=== PATIENT | male | born 2000 | race Native Hawaiian/Other Pacific Islander ===

== ENCOUNTER 2023-02-16 19:35 | Inpatient (IN) | payer MEDICAID ==
[~2023-02-16] VITALS: Ht 165.1 cm; Wt 62.3 kg
[2023-02-16] MEDS ORDERED: ZOLPIDEM TARTRATE 10 MG TABLET PO PRN (22:30)
[2023-02-17 01:38] VITALS: BP 122/88; PULSE 100; RESP 18; TEMP 97.3; O2SAT 99
[2023-02-17 02:30] VITALS: TEMP 97.3
[2023-02-17] MEDS ORDERED: INFLUENZA VIRUS VACCINE QVS 2023-24 (6MO+)/PF 60 MCG/0.5 ML SYRINGE IM. ONE (02:45)
[2023-02-17] MEDS ORDERED: MAGNESIUM HYDROXIDE SUSPENSION 30 ML UDCUP PO PRN (07:15)
[2023-02-17] MEDS ORDERED: PETROLATUM,WHITE 28 GM JELLY TP PRN (07:15)
[2023-02-17] MEDS ORDERED: DOCUSATE SODIUM 100 MG CAPSULE PO PRN (07:15)
[2023-02-17] MEDS ORDERED: CloNIDine HCL 0.1 MG TABLET PO PRN (07:15)
[2023-02-17] MEDS ORDERED: LOPERAMIDE HCL 2 MG CAPSULE PO PRN (07:15)
[2023-02-17] MEDS ORDERED: IBUPROFEN 400 MG TABLET PO PRN (07:15)
[2023-02-17] MEDS ORDERED: ACETAMINOPHEN 325 MG TABLET PO PRN (07:15)
[2023-02-17] MEDS ORDERED: GuaiFENesin/D-METHORPHAN [SUGAR-FREE] 200-20MG/10 ML SYRUP UDCUP PO PRN (07:15)
[2023-02-17] MEDS ORDERED: NICOTINE 14 MG/24 HOUR PATCH TD PRN (07:15)
[2023-02-17] MEDS ORDERED: ONDANSETRON HCL 4 MG TABLET PO PRN (07:15)
[2023-02-17] MEDS ORDERED: MAG HYDROX/ALUMINUM HYD/SIMETH ES 30 ML SUSPENSION UDCUP PO PRN (07:15)
[2023-02-17] MEDS ORDERED: ALBUTEROL SULFATE HFA 90 MCG/PUFF 8 GM INHALER IH PRN (07:15)
[2023-02-17 08:29] VITALS: BP 109/63; PULSE 84; RESP 18; TEMP 98; O2SAT 98
[2023-02-17] MEDS: GABAPENTIN 400 MG CAPSULE PO SCH (16:32)
[2023-02-17] MEDS: DIVALPROEX SODIUM 250 MG DR TABLET PO SCH (16:32)
[2023-02-17] MEDS: OLANZapine 5 MG TABLET PO SCH (20:11)
[2023-02-17 20:27] VITALS: BP 113/66; PULSE 73; RESP 17; TEMP 97.8; O2SAT 98
[2023-02-18] MEDS: GABAPENTIN 400 MG CAPSULE PO SCH ×2 (08:20→16:05)
[2023-02-18] MEDS: DIVALPROEX SODIUM 250 MG DR TABLET PO SCH ×2 (08:20→16:05)
[2023-02-18] MEDS: LORazepam 2 MG TABLET PO PRN ×2 (08:20→15:29)
[2023-02-18 09:08] VITALS: BP 109/84; PULSE 82; RESP 16; TEMP 98.2; O2SAT 100
[2023-02-18 20:46] VITALS: BP 111/83; PULSE 80; RESP 17; TEMP 98.1; O2SAT 99
[2023-02-18] MEDS: OLANZapine 5 MG TABLET PO SCH (21:01)
[2023-02-19 08:37] VITALS: BP 111/74; PULSE 95; RESP 17; TEMP 97.9; O2SAT 97
[2023-02-19] MEDS: DIVALPROEX SODIUM 250 MG DR TABLET PO SCH ×2 (09:21→16:44)
[2023-02-19] MEDS: GABAPENTIN 400 MG CAPSULE PO SCH ×2 (09:21→16:44)
[2023-02-19 20:20] VITALS: BP 111/71; PULSE 102; RESP 18; TEMP 98.2; O2SAT 96
[2023-02-19] MEDS: HALOPERIDOL 5 MG TABLET PO PRN (21:57)
[2023-02-19] MEDS: OLANZapine 5 MG TABLET PO SCH (21:57)
[2023-02-19] MEDS: LORazepam 2 MG TABLET PO PRN (21:57)
[2023-02-20 08:30] VITALS: RESP 18
[2023-02-20] MEDS: DIVALPROEX SODIUM 250 MG DR TABLET PO SCH ×2 (08:50→17:12)
[2023-02-20] MEDS: GABAPENTIN 400 MG CAPSULE PO SCH ×2 (08:50→17:12)
[2023-02-20] MEDS: NICOTINE POLACRILEX 2 MG LOZENGE PO PRN (14:35)
[2023-02-20 20:11] VITALS: BP 118/74; PULSE 95; RESP 20; TEMP 99; O2SAT 94
[2023-02-20] MEDS: OLANZapine 5 MG TABLET PO SCH (20:54)
[2023-02-21 08:16] VITALS: BP 114/67; PULSE 76; RESP 17; TEMP 97.8; O2SAT 98
[2023-02-21] MEDS: GABAPENTIN 400 MG CAPSULE PO SCH ×2 (08:38→17:09)
[2023-02-21] MEDS: DIVALPROEX SODIUM 250 MG DR TABLET PO SCH ×2 (08:38→17:09)
[2023-02-21] MEDS: NICOTINE POLACRILEX 2 MG LOZENGE PO PRN (09:02)
[2023-02-21] MEDS: OLANZapine 5 MG TABLET PO SCH (20:46)
[2023-02-21 23:08] VITALS: BP 120/68; PULSE 74; RESP 16; TEMP 97.6; O2SAT 97
[2023-02-22] MEDS: DIVALPROEX SODIUM 250 MG DR TABLET PO SCH ×2 (08:08→16:50)
[2023-02-22] MEDS: GABAPENTIN 400 MG CAPSULE PO SCH ×2 (08:09→16:50)
[2023-02-22 08:36] LABS: BASOPHILS % (AUTO) 0.5 % (0.0-2.0); EOSINOPHILS % (AUTO) 2.5 % (1.0-6.0); HEMOGLOBIN 15.4 g/dL (13.5-17.5); LYMPHOCYTES # (AUTO) 3.7 K/uL (1.0-4.8); LYMPHOCYTES % (AUTO) 59.2 % (22.0-44.0); MEAN CORPUSCULAR HEMOGLOBIN 30.2 pg (26.0-34.0); MEAN CORPUSCULAR HGB CONC 34.3 G/dL (31.0-37.0); MEAN CORPUSCULAR VOLUME 88 fL (80-100); MONOCYTES # (AUTO) 0.4 K/uL (0.1-1.0); MONOCYTES % (AUTO) 6.6 % (2.0-9.0); NEUTROPHILS % (AUTO) 31.2 % (40.0-70.0); PLATELET COUNT (AUTO) 352 K/uL (150-450); RED CELL DISTRIBUTION WIDTH 13.3 % (11.5-14.5); WHITE BLOOD COUNT (AUTO) 6.3 K/uL (4.5-11.0)
[2023-02-22 08:47] LABS: HEMOGLOBIN A1C 5.3 % (3.8-5.6)
[2023-02-22 09:05] LABS: ALANINE AMINOTRANSFERASE 32 U/L (12-78); ALBUMIN 3.5 g/dL (3.4-5.0); ALKALINE PHOSPHATASE 74 U/L (46-116); ANION GAP 8 mmol/L (8-16); ASPARTATE AMINOTRANSFERASE 23 U/L (15-37); BILIRUBIN,TOTAL 0.3 mg/dL (0.1-1.0); CALCIUM, TOTAL 9.6 mg/dL (8.8-10.5); CARBON DIOXIDE 29 mmol/L (22-29); CHLORIDE 105 mmol/L (98-107); CHOL/HDL RATIO 3.8 (4.2-7.3); CHOLESTEROL 173 mg/dL (131-200); CREATININE 0.68 mg/dL (0.60-1.30); FREE T4 (FREE THYROXINE) 0.97 ng/dL (0.76-1.46); GLOMERULAR FILTR. RATE CALC > 60 mL/min (>60); GLUCOSE,RANDOM 89 mg/dL (70-110); HDL CHOLESTEROL 46 mg/dL (40-60); LDL CHOL (CALC.) 105 mg/dL (0-130); POTASSIUM 4.6 mmol/L (3.5-5.1); SODIUM SERUM 142 mmol/L (136-145); TOTAL PROTEIN, SERUM 7.4 g/dL (6.4-8.2); TRIGLYCERIDES 112 mg/dL (15-150); UREA NITROGEN, BLOOD 9 mg/dL (7-18)
[2023-02-22 20:30] VITALS: BP 126/76; PULSE 6; RESP 22; TEMP 97.8; O2SAT 98
[2023-02-22] MEDS: OLANZapine 5 MG TABLET PO SCH (20:35)
[2023-02-23] MEDS: GABAPENTIN 400 MG CAPSULE PO SCH ×2 (08:09→16:29)
[2023-02-23] MEDS: DIVALPROEX SODIUM 250 MG DR TABLET PO SCH ×2 (08:09→16:29)
[2023-02-23 08:47] VITALS: BP 112/61; PULSE 87; RESP 18; TEMP 96.6; O2SAT 97
[2023-02-23 20:00] VITALS: BP 116/68; PULSE 86; RESP 18; TEMP 97; O2SAT 98
[2023-02-23] MEDS: OLANZapine 5 MG TABLET PO SCH (20:11)
[2023-02-24] MEDS: GABAPENTIN 400 MG CAPSULE PO SCH ×2 (08:25→15:59)
[2023-02-24] MEDS: DIVALPROEX SODIUM 250 MG DR TABLET PO SCH ×2 (08:25→15:59)
[2023-02-24 08:37] VITALS: BP 117/77; PULSE 105; RESP 17; TEMP 98.2; O2SAT 100
[2023-02-24] MEDS: LORazepam 2 MG TABLET PO PRN ×2 (11:32→16:24)
[2023-02-24 20:21] VITALS: BP 123/74; PULSE 92; RESP 17; TEMP 96; O2SAT 99
[2023-02-24] MEDS: OLANZapine 10 MG TABLET PO SCH (20:28)
[2023-02-25] MEDS: GABAPENTIN 400 MG CAPSULE PO SCH ×2 (08:28→16:05)
[2023-02-25] MEDS: DIVALPROEX SODIUM 250 MG DR TABLET PO SCH ×2 (08:28→16:05)
[2023-02-25 08:54] VITALS: BP 120/70; PULSE 79; RESP 17; TEMP 97.2; O2SAT 99
[2023-02-25] MEDS: LORazepam 2 MG TABLET PO PRN ×2 (11:43→18:00)
[2023-02-25] MEDS: HALOPERIDOL 5 MG TABLET PO PRN (18:00)
[2023-02-25] MEDS: OLANZapine 10 MG TABLET PO SCH (20:08)
[2023-02-25 20:09] VITALS: BP 115/75; PULSE 87; RESP 18; TEMP 97.5; O2SAT 99
[2023-02-26 08:31] VITALS: BP 121/94; PULSE 92; RESP 18; TEMP 97.7; O2SAT 98
[2023-02-26] MEDS: GABAPENTIN 400 MG CAPSULE PO SCH (08:44)
[2023-02-26] MEDS: DIVALPROEX SODIUM 250 MG DR TABLET PO SCH (08:45)
[2023-02-26] MEDS: LORazepam 2 MG TABLET PO PRN (08:45)
[2023-02-26] MEDS: HALOPERIDOL 5 MG TABLET PO PRN (08:45)
[2023-02-26] MEDS ORDERED: DIVA-111 PO ×2 (11:14→14:49)
[2023-02-26] MEDS ORDERED: GABA-1201 PO ×2 (11:15→14:49)
[2023-02-26] MEDS ORDERED: OLAN10TA74 PO ×2 (11:16→14:49)
== END 2023-02-26 13:00 | disposition left against medical advice (07) | DRG 750 ==
LOC: B2S 23:17
PROVIDERS: ADMIT Psychiatry & Neurology Child & Adolescent Psychiatry; ATTEND Psychiatry & Neurology Child & Adolescent Psychiatry
DX: F25.0 Schizoaffective disorder, bipolar type (principal); F41.9 Anxiety disorder, unspecified; Z53.21 Procedure and treatment not carried out due to patient leaving prior to being seen by health care provider; G47.00 Insomnia, unspecified; Z88.5 Allergy status to narcotic agent
CPT/HCPCS: 80053; 80061; 83036; 84439; 84443; 85025; Q9967